=== PATIENT | female | born 1995 | race Two or more races ===

== ENCOUNTER 2022-07-05 14:10 | Day surgery (SDC) | payer OTHER | END 2022-07-06 | disposition home or self-care (01) | LOC: CIR.AMB 14:10 | PROVIDERS: ATTEND Obstetrics & Gynecology | DX: N87.1 Moderate cervical dysplasia (principal); N87.0 Mild cervical dysplasia; N72 Inflammatory disease of cervix uteri; Z20.822 Contact with and (suspected) exposure to COVID-19; Z91.041 Radiographic dye allergy status; Z91.013 Allergy to seafood; Z91.018 Allergy to other foods; F12.90 Cannabis use, unspecified, uncomplicated ==